=== PATIENT | female | born 1990 | race Caucasian/White ===

== ENCOUNTER 2017-11-06 20:24 | Inpatient (IN) | payer OTHER ==
[2017-11-07] MEDS ORDERED: IBUPROFEN 600 MG TAB PO
[2017-11-07] MEDS ORDERED: BUTORPHANOL 2 MG INJ IV
[2017-11-07] MEDS ORDERED: LIDOCAINE 1% (MPF) 30 ML INJ INJ
[2017-11-07] MEDS: LACTATED RINGER'S 1,000 ML IV ×4 (01:24→16:00)
[2017-11-07] MEDS: AMPICILLIN 2 GM/NS (PMX) 100 ML IV (01:24)
[2017-11-07 01:28] LABS: ADD MAN DIFF? NO
[2017-11-07 01:34] LABS: WHITE BLOOD COUNT 10.4 10^3/ul (4.8-10.8)
[2017-11-07 01:34] LABS: BASOPHILS % 0.2 % (0.0-2.0); EOSINOPHILS % 0.4 % (0.0-7.0); HEMOGLOBIN 13.2 g/dl (12.0-16.0); LYMPHOCYTES # 2.7 10^3/ul (0.8-2.9); LYMPHOCYTES % 26.1 % (15.0-51.0); MEAN CORPUSCULAR HEMOGLOBIN 31.6 pg (29.0-33.0); MEAN CORPUSCULAR HGB CONC 34.7 g/dl (32.0-37.0); MEAN CORPUSCULAR VOLUME 90.9 fl (82.0-101.0); MEAN PLATELET VOLUME 9.6 fl (7.4-10.4); MONOCYTE # 0.7 10^3/ul (0.3-0.9); MONOCYTES % 6.4 % (0.0-11.0); NEUTROPHIL # 6.9 10^3/ul (1.6-7.5); NEUTROPHILS % 66.4 % (39.0-77.0); PLATELET COUNT 389 10^3/UL (140-415); RED BLOOD COUNT 4.18 10^6/ul (4.20-5.40); RED CELL DISTRIBUTION WIDTH 12.4 % (11.5-14.5)
[2017-11-07 01:48] LABS: INR 0.83; PROTIME 11.5 Sec (11.9-14.9); PT RATIO 0.9
[2017-11-07 01:49] LABS: PARTIAL THROMBOPLASTIN TIME 26.7 Sec (25.0-35.0)
[2017-11-07 02:25] LABS: HEPATITIS B SURFACE ANTIGEN NEGATIVE (NEGATIVE)
[2017-11-07] MEDS: AMPICILLIN 1 GM/NS (PMX) 50 ML IV (05:01)
[2017-11-07] MEDS ORDERED: FENTAnyl 2MCG/ML-ROPIV 0.2% 100 ML (05:44)
[2017-11-07] MEDS: OXYTOCIN 30 UNITS/LR 500 ML IV ×3 (07:35→10:59)
[2017-11-07] MEDS ORDERED: METHYLERGONOVINE 0.2 MG INJ IM ×2 (11:00)
[2017-11-07] MEDS ORDERED: MISOPROSTOL 200 MCG TAB PR ×2 (11:00)
[2017-11-07] MEDS ORDERED: CARBOPROST 250 MCG INJ IM ×2 (11:00)
[2017-11-07] MEDS ORDERED: OXYTOCIN 30 UNITS/LR 500 ML IV ×3 (11:00)
[2017-11-07] MEDS ORDERED: DIBUCAINE 1% 30 GM OINT PR (12:00)
[2017-11-07] MEDS: WITCH HAZEL/GLYCERIN PAD PR (12:26)
[2017-11-07] MEDS: IBUPROFEN 600 MG TAB PO ×2 (12:26→17:54)
[2017-11-07] MEDS: BENZOCAINE 20% 56 ML SPRAY TOP (12:27)
[2017-11-07] MEDS: LANOLIN 7 GM TUBE TOP (12:27)
[2017-11-07 15:52] LABS: RAPID PLASMA REAGIN NONREACTIVE (NR)
[2017-11-07] MEDS ORDERED: OXYCODONE/ACETAMINOPHEN (5/325) TAB PO (16:30)
[2017-11-07] MEDS: OXYCODONE/ACETAMINOPHEN (5/325) TAB PO (16:40)
[2017-11-07] MEDS: SENNA/DOCUSATE NA (8.6MG/50MG) TAB PO (20:43)
[2017-11-08] MEDS: IBUPROFEN 600 MG TAB PO ×3 (00:13→12:02)
[2017-11-08 07:41] LABS: ADD MAN DIFF? NO
[2017-11-08 07:54] LABS: BASOPHILS % 0.2 % (0.0-2.0); EOSINOPHILS % 0.3 % (0.0-7.0); HEMATOCRIT 35.9 % (37.0-47.0); HEMOGLOBIN 12.1 g/dl (12.0-16.0); LYMPHOCYTES # 2.3 10^3/ul (0.8-2.9); LYMPHOCYTES % 23.7 % (15.0-51.0); MEAN CORPUSCULAR HEMOGLOBIN 31.3 pg (29.0-33.0); MEAN CORPUSCULAR HGB CONC 33.7 g/dl (32.0-37.0); MEAN PLATELET VOLUME 9.9 fl (7.4-10.4); MONOCYTE # 0.6 10^3/ul (0.3-0.9); NEUTROPHIL # 6.8 10^3/ul (1.6-7.5); NEUTROPHILS % 69.3 % (39.0-77.0); PLATELET COUNT 361 10^3/UL (140-415); RED BLOOD COUNT 3.86 10^6/ul (4.20-5.40); RED CELL DISTRIBUTION WIDTH 12.7 % (11.5-14.5)
[2017-11-08 07:54] LABS: WHITE BLOOD COUNT 9.8 10^3/ul (4.8-10.8)
[2017-11-08] MEDS: LACTATED RINGER'S 1,000 ML IV ×4 (08:00→16:00)
[2017-11-08 08:53] LABS: AADO2 Arterial 67.8 mmHg (7.0-24.0); Arterial Base Excess -1.2 mmol/L (-3.0-3); Arterial COHb 1.3 % (0.0-3.0); Arterial Fraction of Oxyhgb 66.4 % (93.0-99.0); Arterial HCO3 24.8 mmol/L (22.0-26.0); Arterial MetHb 1.1 % (0.0-1.5); Arterial Total Hemglobin 15.2 g/dl (12.0-18.0); Arterial pCO2 45.8 mmhg (35-45); MODE ROOM AIR; Sample Type CBA; Site CORD
[2017-11-08] MEDS: SENNA/DOCUSATE NA (8.6MG/50MG) TAB PO (10:07)
== END 2017-11-08 17:25 | disposition home or self-care (01) | DRG 775 ==
LOC: OBT 20:24 → L-D 11-07 01:30 → PP1 11-07 11:07 → OBT 23:49 → L-D 23:49
PROVIDERS: Obstetrics & Gynecology
PROC: 10E0XZZ Delivery of Products of Conception, External Approach (ICD-10-PCS; principal; 2017-11-07)
PROC: 0W8NXZZ Division of Female Perineum, External Approach (ICD-10-PCS; 2017-11-07)
PROC: 3E033VJ Introduction of Other Hormone into Peripheral Vein, Percutaneous Approach (ICD-10-PCS; 2017-11-07)
DX: O80 Encounter for full-term uncomplicated delivery (principal); Z37.0 Single live birth; O66.5 Attempted application of vacuum extractor and forceps; Z3A.39 39 weeks gestation of pregnancy
CPT/HCPCS: 36600; 62319; 76815; 76818; 82803; 85025; 85610; 85730; 86592; 86850; 86900; 86901; 87340; 99464